=== PATIENT | female | born 1960 | race Caucasian/White ===

== ENCOUNTER 2016-07-10 13:14 | Emergency (ER) | payer BC, OTHER ==
[~2016-07-10] VITALS: Ht 160 cm; Wt 99.3 kg
[~2016-07-10 13:14] MED LIST: ADVAIR 250/501 DISK IH; ALDACTONE100 MG PO; ALDACTONE25 MG PO; ALDACTONE50 MG PO; ALPRAZOLAM1 MG PO; ALTACE2.5 MG PO; ASPIR-LOW81 MG PO; Advair HFA 230/21 IH; Aldactone PO; BENZONATATE200 MG PO; Bactrim,Septra DS 80 PO; CATAPRES0.2 MG PO; CLEOCIN300 MG PO; CORTEF10 MG PO; COUMADIN10 MG PO; COUMADIN2.5 MG PO; COZAAR100 MG PO; Colace PO; Coumadin,Jantoven PO; Cozaar PO; DESYREL100 MG PO; DIFLUCAN100 MG PO; DILAUDID2 MG PO; DILAUDID4 MG PO; DULERA 100 MCG/13 GM; DULERA 100 MCG/13 GM IH; DULERA 200 MCG/13 GM IH; Desyrel PO; Dulera 100 mcg/5 mcg IH; Dulera 200 mcg/5 mcg IH; FAMOTIDINE20 MG PO; FLONASE16 G1 BOTH NARES; FLOVENT 22120 INHALA IH; GLUCOPHAGE500 MG PO; Glucophage PO; HYCODAN SYRUP480 ML PO; HYDROCODON-ACE1 EAC7 PO; K-DUR20 MEQ PO; K-Dur PO; LAMISIL15 GM TP; LASIX20 MG PO; LEVOFLOXACIN750 MG PO; LEXAPRO20 MG PO; LOVENOX80 MG/0.8 SC; Lasix PO; METFORMIN HCL500 MG PO; METOCLOPRAMIDE10 MG PO; MIDAMOR PO; MIDAMOR5 MG PO; MIRALAX17 GM PO; MONTELUKAST SOD10 MG PO; NORVASC10 MG PO; NORVASC5 MG PO; Norvasc PO; OSCAL, OYSTER500 MG PO; PANTOPRAZOLE SO40 MG PO; PEPCID20 MG PO; PREDNISONE10 MG PO; PREDNISONE20 MG PO; PREDNISONE5 MG PO; PROTONIX40 MG PO; PROVENTIL,VENTOL2 MG PO; PROVENTIL2.5 MG/3 M IH; Protonix PO; REGLAN10 MG; REGLAN10 MG PO; RITALIN LA40 MG PO; ROCALTROL0.5 MCG PO; Reglan PO; Ritalin SR, Metadate PO; SINGULAIR10 MG PO; SPIRIVA1 INHALATI IH; Singulair PO; TESSALON PERLE100 MG PO; THALITONE15 MG PO; THEO-DUR,THEOC300 MG PO; THEOPHYLLINE A300 M1 PO; THEOPHYLLINE600 MG PO; TRAZODONE HCL100 MG PO; TYLENOL EXTRA500 MG PO; TYLENOL WITH C1 EACH PO; Tessalon Perle PO; Theo-Dur,Theocron PO; UNIPHYL PO; UNIPHYL600 MG PO; VENTOLIN HFA18 GM IH; Vicodin,Norco 5/325 PO; WELLBUTRIN SR150 MG PO; WELLBUTRIN XL150 MG PO; Wellbutrin XL PO; XANAX0.5 MG PO; XANAX1 MG; XANAX1 MG PO; ZITHROMAX500 MG PO; ZOFRAN4 MG PO; ZOFRAN8 MG PO; [UNRECOGNIZED DRUG - CODE] IH
[2016-07-10 14:31] LABS: HEMATOCRIT 44.1 % (36.0-46.0); MCH 27.4 PG (29.0-34.0); MCHC 32.7 G/DL (30.0-36.0); MCV 83.8 FL (83-99); MEAN PLAT.VOLUME 8.7 uM^3 (9.5-12.4); PLATELET COUNT 315 K/uL (156-360); RBC DIS.WIDTH-CV 14.3 % (11.8-14.6); RBC DIS.WIDTH-SD 43.7 % (39-53); RED BLOOD COUNT 5.26 M/uL (3.80-5.20); WHITE BLOOD COUNT 9.9 K/uL (4.1-10.2)
[2016-07-10 14:39] LABS: CHLORIDE 108 mEq/L (99-109); POTASSIUM 4.5 mEq/L (3.7-5.4); SODIUM 141 mEq/L (136-147)
[2016-07-10 14:41] LABS: GLUCOSE 119 mg/dL (70-99)
[2016-07-10 14:42] LABS: ANION GAP 10 MEQ/L (2-14)
[2016-07-10 14:43] LABS: TOTAL BILIRUBIN 0.5 mg/dL (0.0-1.0)
[2016-07-10 14:44] LABS: ALKALINE PHOSPHATASE 179 IU/L (3-129)
[2016-07-10 14:45] LABS: GFR ESTIMATE (CALCULATED) > 59 mL/min/
[2016-07-10 14:46] LABS: UREA NITROGEN (BUN) 12 mg/dL (9-23)
[2016-07-10 18:13] VITALS: BP 147/88
== END 2016-07-10 18:13 | disposition home or self-care (01) ==
LOC: EME 13:14
DX: R10.11 Right upper quadrant pain (principal); J45.909 Unspecified asthma, uncomplicated; I10 Essential (primary) hypertension; E11.9 Type 2 diabetes mellitus without complications; Z95.0 Presence of cardiac pacemaker; Z88.8 Allergy status to other drugs, medicaments and biological substances; Z88.5 Allergy status to narcotic agent; Z87.891 Personal history of nicotine dependence
CPT/HCPCS: 74176; 80053; 81003; 85027; 93005; J7030

== ENCOUNTER 2017-07-13 14:54 | Inpatient (IN) | payer BC, OTHER ==
[~2017-07-13] VITALS: Ht 160 cm; Wt 109.1 kg
[~2017-07-13 14:54] MED LIST changes: -ALTACE2.5 MG PO; +ALTACE5 MG PO
[2017-07-13 15:58] LABS: BASOPHIL (%) 1.7 % (0-1); BASOPHIL COUNT 0.1 K/uL (0-0.1); EOSINOPHIL (%) 3.9 % (0-5); EOSINOPHIL COUNT 0.3 K/uL (0-0.3); HEMATOCRIT 41.8 % (36.0-46.0); IMMATURE GRANULOCYTE (%) 0.4 % (0.0-0.7); LYMPHOCYTE COUNT 2.3 K/uL (1.0-2.8); MCH 28.5 PG (29.0-34.0); MCHC 33.5 G/DL (30.0-36.0); MCV 85.1 FL (83-99); MONOCYTE (%) 6.3 % (3-12); MONOCYTE COUNT 0.4 K/uL (0-0.8); NEUTROPHIL (%) 54.7 % (45-76); NEUTROPHIL COUNT 3.8 K/uL (1.8-6.4); PLATELET COUNT 285 K/uL (156-360); RBC DIS.WIDTH-CV 14.1 % (11.8-14.6); RBC DIS.WIDTH-SD 43.7 % (39-53); RED BLOOD COUNT 4.91 M/uL (3.80-5.20)
[2017-07-13 16:13] LABS: ALBUMIN 3.9 g/dL (3.2-4.8); CHLORIDE 107 mEq/L (99-109); POTASSIUM 4.4 mEq/L (3.7-5.4); SODIUM 140 mEq/L (136-147)
[2017-07-13 16:15] LABS: GLUCOSE 101 mg/dL (70-99); TOTAL PROTEIN 7.3 g/dL (6.4-8.3)
[2017-07-13 16:17] LABS: TOTAL BILIRUBIN 0.4 mg/dL (0.0-1.0)
[2017-07-13 16:19] LABS: ALKALINE PHOSPHATASE 162 IU/L (3-129); CREATININE 0.7 mg/dL (0.6-1.3); GFR ESTIMATE (CALCULATED) > 59 mL/min/
[2017-07-13 16:20] LABS: UREA NITROGEN (BUN) 7 mg/dL (9-23)
[2017-07-13 16:21] LABS: AST (GOT) 43 IU/L (2-34)
[2017-07-13 16:22] LABS: ALT (GPT) 28 IU/L (3-49)
[2017-07-13] MEDS ORDERED: ESCITALOPRAM OX10 MG PO (20:26)
[2017-07-13] MEDS ORDERED: ESOMEPRAZOLE MA40 MG PO (20:29)
[2017-07-13] MEDS ORDERED: GABAPENTIN100 MG PO (20:29)
[2017-07-13] MEDS ORDERED: XIFAXAN550 MG PO (20:31)
[2017-07-13] MEDS ORDERED: DUONEB 2.5-0.5 M3 ML AEROSOL (20:34)
[2017-07-13] MEDS ORDERED: ADVAIR 500/501 DISK IH (20:35)
[2017-07-13] MEDS ORDERED: PROMETHAZINE HC25 M1 PO (20:55)
[2017-07-13] MEDS ORDERED: PYRIDOSTIGMINE60 MG PO (20:59)
[2017-07-13] MEDS ORDERED: REMERON30 M2 PO (21:00)
[2017-07-13] MEDS ORDERED: DESYREL100 MG PO (21:02)
[2017-07-13 21:06] LABS: HEMATOCRIT 43.1 % (36.0-46.0); HEMOGLOBIN 14.4 G/DL (11.9-15.5); MCH 28.6 PG (29.0-34.0); MCHC 33.4 G/DL (30.0-36.0); MCV 85.5 FL (83-99); PLATELET COUNT 285 K/uL (156-360); RBC DIS.WIDTH-CV 13.9 % (11.8-14.6); RED BLOOD COUNT 5.04 M/uL (3.80-5.20); WHITE BLOOD COUNT 9.2 K/uL (4.1-10.2)
[2017-07-13 21:24] LABS: HDL CHOLESTEROL 45 MG/DL (Desirable>=50); LDL CHOLESTEROL 106 mg/dL (Desirable<100); NON-HDL CHOLESTEROL 136 mg/dL (Desirable<160); TOTAL CHOLESTEROL 181 mg/dL (Desirable<200); TRIGLYCERIDES 151 MG/DL (Normal: <150)
[2017-07-13] MEDS ORDERED: LOVENOX40 MG/0.4 SC (21:34)
[2017-07-13 22:42] VITALS: BP 155/96
[2017-07-13 23:35] LABS: APPEARANCE CLEAR ((CLEAR)); BILIRUBIN NEGATIVE; BLOOD NEGATIVE; COLOR YELLOW ((YELLOW)); GLUCOSE (STRIP) 50; KETONES 20; LEUKOCYTES SMALL; NITRITE NEGATIVE; PROTEIN (STRIP) NEGATIVE; UROBILINOGEN 0.2 MG/DL (0.2-1.0)
[2017-07-13 23:38] LABS: BACTERIA RARE /HPF; EPITHELIAL CELLS 1+ /HPF; MUCUS TRACE /LPF; RED BLOOD CELLS 0-5 /HPF (0-5); UCUL ADDED? NO; WHITE BLOOD CELLS 0-5 /HPF (0-5)
[2017-07-14] VITALS (7 sets, daily range): BP systolic 157–188; BP diastolic 70–96
[2017-07-15] VITALS (7 sets, daily range): BP systolic 124–148; BP diastolic 59–73
[2017-07-15 01:29] LABS: TROP-I INTERPRETATION NEGATIVE; TROPONIN-I < 0.01 ng/mL (0.0-0.30)
[2017-07-15 05:43] LABS: CHLORIDE 108 MEQ/L (99-109); CREATININE 0.7 MG/DL (0.6-1.3); GFR ESTIMATE (CALCULATED) > 59 mL/min/; POTASSIUM 4.2 MEQ/L (3.7-5.4); SODIUM 138 MEQ/L (136-147); UREA NITROGEN (BUN) 10 mg/dL (9-23)
[2017-07-15 05:44] LABS: GLUCOSE 172 mg/dL (70-99)
[2017-07-15 05:46] LABS: TROP-I INTERPRETATION NEGATIVE; TROPONIN-I < 0.01 ng/mL (0.0-0.30)
[2017-07-15 08:49] LABS: THYROTROPIN (TSH) 1.8 MIU/L (0.4-5.5)
[2017-07-15 12:18] LABS: TROP-I INTERPRETATION NEGATIVE; TROPONIN-I < 0.01 ng/mL (0.0-0.30)
[2017-07-16 04:03] VITALS: BP 140/63
[2017-07-16 05:35] LABS: HEMATOCRIT 40.6 % (36.0-46.0); HEMOGLOBIN 13.1 G/DL (11.9-15.5); MCH 28.3 PG (29.0-34.0); MCHC 32.3 G/DL (30.0-36.0); MCV 87.7 FL (83-99); PLATELET COUNT 321 K/uL (156-360); RBC DIS.WIDTH-CV 14.6 % (11.8-14.6); RBC DIS.WIDTH-SD 46.5 % (39-53); RED BLOOD COUNT 4.63 M/uL (3.80-5.20); WHITE BLOOD COUNT 9.9 K/uL (4.1-10.2)
[2017-07-16 05:52] LABS: PTT 26.2 SEC (25-37)
[2017-07-16 06:16] LABS: ALBUMIN 3.7 G/DL (3.2-4.8); ALKALINE PHOSPHATASE 136 IU/L (3-129); ALT (GPT) 24 IU/L (3-49); AST (GOT) 22 IU/L (2-34); CHLORIDE 106 MEQ/L (99-109); CREATININE 0.7 MG/DL (0.6-1.3); GFR ESTIMATE (CALCULATED) > 59 mL/min/; GLUCOSE 129 mg/dL (70-99); POTASSIUM 3.6 MEQ/L (3.7-5.4); SODIUM 140 MEQ/L (136-147); TOTAL BILIRUBIN 0.4 MG/DL (0.0-1.0); TOTAL PROTEIN 6.4 G/DL (6.4-8.3); UREA NITROGEN (BUN) 12 mg/dL (9-23)
[2017-07-16 07:48] VITALS: BP 100/53
[2017-07-16 12:02] VITALS: BP 135/74
[2017-07-16 16:03] VITALS: BP 147/69
[2017-07-16 20:00] VITALS: BP 138/78
[2017-07-17 00:44] VITALS: BP 124/58
[2017-07-17 04:00] VITALS: BP 132/70
[2017-07-17 07:51] VITALS: BP 142/71
[2017-07-17 15:43] VITALS: BP 152/77
[2017-07-17 16:26] LABS: CSF PROTEIN 44 mg/dL (15-45)
[2017-07-17 16:29] LABS: APPEARANCE CLEAR/COLORLESS; CSF EOSINOPHILS ND % (0-25); CSF TUBE NUMBER TUBE #4; MONONUCLEAR WBC'S ND % (50-90); POLYNUCLEAR WBC'S ND % (0-3); RED CELL COUNT 1 /MM^3 (0-1); WHITE CELL COUNT 1 /MM^3 (0-5)
[2017-07-17 17:08] LABS: CSF LDH < 25 IU/L; GLUCOSE, CSF 82 mg/dL (40-80)
[2017-07-17 23:56] VITALS: BP 158/88
[2017-07-18 06:29] LABS: CHLORIDE 102 MEQ/L (99-109); CREATININE 0.8 MG/DL (0.6-1.3); GFR ESTIMATE (CALCULATED) > 59 mL/min/; POTASSIUM 4.3 MEQ/L (3.7-5.4); SODIUM 137 MEQ/L (136-147); UREA NITROGEN (BUN) 13 mg/dL (9-23)
[2017-07-18 06:30] LABS: GLUCOSE 217 mg/dL (70-99)
[2017-07-18 08:00] VITALS: BP 175/85
[2017-07-18 16:00] VITALS: BP 146/67
[2017-07-18 23:41] VITALS: BP 130/62
[2017-07-19 05:57] LABS: HEMATOCRIT 42.2 % (36.0-46.0); HEMOGLOBIN 13.7 G/DL (11.9-15.5); MCH 27.6 PG (29.0-34.0); MCHC 32.5 G/DL (30.0-36.0); MCV 85.1 FL (83-99); PLATELET COUNT 373 K/uL (156-360); RBC DIS.WIDTH-SD 43.1 % (39-53); RED BLOOD COUNT 4.96 M/uL (3.80-5.20); WHITE BLOOD COUNT 18.4 K/uL (4.1-10.2)
[2017-07-19 06:14] LABS: CHLORIDE 101 MEQ/L (99-109); CREATININE 0.7 MG/DL (0.6-1.3); GFR ESTIMATE (CALCULATED) > 59 mL/min/; GLUCOSE 212 mg/dL (70-99); POTASSIUM 4.3 MEQ/L (3.7-5.4); SODIUM 137 MEQ/L (136-147); UREA NITROGEN (BUN) 14 mg/dL (9-23)
[2017-07-19 07:06] VITALS: BP 119/60
[2017-07-19 15:03] VITALS: BP 132/62
[2017-07-20 00:25] VITALS: BP 157/70
[2017-07-20 07:47] VITALS: BP 138/74
[2017-07-20 16:11] VITALS: BP 143/74
[2017-07-20 23:43] VITALS: BP 130/60
[2017-07-21 07:52] VITALS: BP 134/84
[2017-07-21 16:15] VITALS: BP 146/65
[2017-07-22 00:27] VITALS: BP 147/70
[2017-07-22 07:47] VITALS: BP 163/104
[2017-07-22 08:25] LABS: IgG Index, CSF 0.46 index; Synthesis Rate IgG, CSF -2.3 mg/24hr
[2017-07-22 08:26] LABS: Albumin, CSF 19.4 mg/dL; IgG, CSF 1.7 mg/dL
[2017-07-22 08:28] LABS: IgG, Serum 687 (L) mg/dL
[2017-07-22 08:29] LABS: Albumin, Serum 3.6 g/dL
[2017-07-22] MEDS ORDERED: ATORVASTATIN CA40 MG PO (11:12)
[2017-07-22] MEDS ORDERED: LOPRESSOR25 MG PO (11:12)
[2017-07-22] MEDS ORDERED: GABAPENTIN100 MG PO (11:14)
[2017-07-22] MEDS ORDERED: PREDNISONE10 MG PO (11:19)
[2017-07-22 14:40] VITALS: BP 154/71
== END 2017-07-22 16:03 | disposition home or self-care (01) | DRG 41 ==
LOC: EME 14:54 → 5SOUTH 19:51 → ENRESERV 19:51 → EDOF 19:51 → ENRESERV 20:09 → 5SOUTH 21:52
PROVIDERS: Emergency Medicine; Family Medicine; Hospitalist
PROC: 03BT3ZX Excision of Left Temporal Artery, Percutaneous Approach, Diagnostic (ICD-10-PCS; principal; 2017-07-17)
PROC: 009U3ZX Drainage of Spinal Canal, Percutaneous Approach, Diagnostic (ICD-10-PCS; principal; 2017-07-17)
DX: I63.9 Cerebral infarction, unspecified (principal); K31.84 Gastroparesis; G47.30 Sleep apnea, unspecified; H57.02 Anisocoria; J44.9 Chronic obstructive pulmonary disease, unspecified; K21.9 Gastro-esophageal reflux disease without esophagitis; M79.7 Fibromyalgia; F32.9 Major depressive disorder, single episode, unspecified; F41.9 Anxiety disorder, unspecified; Z96.89 Presence of other specified functional implants; E66.01 Morbid (severe) obesity due to excess calories; Z68.41 Body mass index [BMI] 40.0-44.9, adult; Z86.711 Personal history of pulmonary embolism; Z86.718 Personal history of other venous thrombosis and embolism; Z87.891 Personal history of nicotine dependence; Z90.5 Acquired absence of kidney
CPT/HCPCS: 62270; 70450; 70496; 70498; 77003; 80048; 80053; 80061; 81003; 82040 90; 82042 90; 82164 90; 82784 90; 82945; 82948; 83036; 83615 91; 83873 90; 83916 90; 84157; 84443; 84484; 85025; 85027; 85379; 85610; 85651; 85730; 86038; 86255 90; 87070; 87102; 87205; 88305; 88313; 89051; 93306; 93880; 94640 76; 99281; 99285; J0690; J1200; J1650; J2250; J2405; J2930; J3010; J7040; J7512